=== PATIENT | male | born 1975 | race Caucasian/White ===

== ENCOUNTER 2019-09-11 01:03 | Emergency (ER) | payer SELFPAY ==
[~2019-09-11] VITALS: Ht 170.2 cm; Wt 85.7 kg
--- NOTE | 2019-09-11 01:15 | NUR ---
PT TAKEN TO BED 11
[2019-09-11 01:16] VITALS: BP 152/110
--- NOTE | 2019-09-11 01:21 | NUR ---
Dr. Khan examining patient.
--- NOTE | 2019-09-11 01:25 | NUR ---
44 Y/O MALE PRESENTS TO ED, C/O ALTERATION OF SKIN INTEGRITY ON BILAT LEGS THATS PROGRESSING TOWARDS TORSO. HAS SAME SYMPTOMS ON BILAT LEGS X1 MONTH BUT WORSENED RECENTLY PT TAKES MEDICATIONS TO HELP ALLEVATE PAIN. C/O BURNING LIKE SENSATION. PT STABLE. PT SEEN BY AUDREY. WILL CONTINUE TO MONITOR.
[2019-09-11] MEDS ORDERED: VANCOMYCIN 1,000 MG in DEXTROSE 5% 250 ML IV ONE (01:30)
[2019-09-11] MEDS ORDERED: VANCOMYCIN 1,000 MG VIAL ONE (01:50)
[2019-09-11 04:45] VITALS: BP 155/88
--- NOTE | 2019-09-11 04:45 | NUR ---
PT DISCHARGED BY DR MORALES, PROVIDED PAPERWORK. RX MUPIROCIN, BACTRIM. EDUCATED PT REGARDING MEDICATIONS AND S/E. EDUCATED PT REGARDING D/C DIAGNOSIS AND INSTRUCTIONS. PT VERBALIZED UNDERSTANDING OF TEACHING. TOLD PT TO FOLLOW UP WITH PCP AND WHEN TO RETURN TO ED. PT VSS. ALL QUESTIONS ANSWERED.
== END 2019-09-11 04:45 | disposition home or self-care (01) ==
LOC: MED 01:03
DX: L03.116 Cellulitis of left lower limb (principal); L03.115 Cellulitis of right lower limb; B95.62 Methicillin resistant Staphylococcus aureus infection as the cause of diseases classified elsewhere
CPT/HCPCS: 36415; 87040; 96365; 96366; 99283; J3370

== ENCOUNTER 2019-09-16 22:52 | Inpatient (IN) | payer SELFPAY ==
[~2019-09-16] VITALS: Ht 167.6 cm; Wt 81.2 kg
[2019-09-16 23:20] VITALS: BP 129/90
--- NOTE | 2019-09-16 23:20 | NUR ---
TO BED # 12 AMBULATORY
--- NOTE | 2019-09-16 23:45 | NUR ---
44 YO M BIB SELF AND PARTNER PRESENTS TO ED C/O BODY RASH X 1 WEEK S/P STARTING BACTRIM ABX. PT WAS SEEN HERE IN ER X 1 WEEK AGO ORIGINALLY FOR CELLULITIS RASH TO BILATERAL LEGS. PT SENT HOME WITH BACTRIM. PT STATES 2 DAYS AFTER STARTING BACTRIM, PT EXPERIENCED MILD THROAT SWELLING X 2-3 HOURS AFTER TAKING BACTRIM. PT ALSO DEVELOPED GENERALIZED BODY RASH TO BUE, TRUNK, BACK. CELLULITIS TO LEGS REMAINS UNRESOLVED. PT DENIES DIFFICULTY BREATHING, FEVER/CHILLS, NVD. -- PT AWAKE, A/O X 4. CALM, COOPERATIVE. ANSWERS QUESTIONS WITHOUT DIFFICULTY IN CLEAR, FULL SENTECNES. -- SKIN PINK, WARM, DRY. BREATHING EVEN, UNLABORED. -- BLE APPEAR RED, INFLAMMED, WITH SKIN PEELING AND WEEPING NOTED. PMH-- DENIES RX-- DENIES
[2019-09-17] MEDS ORDERED: methylPREDNISolone SS 125 MG in WATER STERILE 2 ML IV ONE (00:30)
[2019-09-17] MEDS ORDERED: VANCOMYCIN 1,000 MG in DEXTROSE 5% 250 ML IV ONE (00:30)
[2019-09-17] MEDS ORDERED: VANCOMYCIN 1,000 MG VIAL ONE (00:52)
[2019-09-17 01:07] LABS: HEMATOCRIT 42.5 % (36-52); HEMOGLOBIN 14.5 g/dL (12.0-18.0); MEAN CORPUSCULAR HEMOGLOBIN 31 pg (27-31); MEAN CORPUSCULAR HGB CONC 34 g/dL (33-37); MEAN CORPUSCULAR VOLUME 89.5 fL (80-94); PLATELET COUNT (AUTO) 361 K/uL (140-450); RED BLOOD CELL COUNT(AUTO) 4.75 MIL/uL (4.20-6.10); RED CELL DISTRIBUTION WIDTH 13.7 % (11.6-13.7); WHITE BLOOD COUNT (AUTO) 14.1 K/uL (4.8-10.8)
[2019-09-17 01:19] LABS: EOSINOPHILS % (MANUAL) 39 % (0-4); LYMPHOCYTES % (MANUAL) 17 % (20-46); MONOCYTES % (MANUAL) 4 % (5-12)
[2019-09-17 01:22] LABS: ANION GAP 15.8 (8-16); CARBON DIOXIDE 26.1 mmol/L (21-32); CREATININE 1.5 mg/dL (0.7-1.3); POTASSIUM 3.9 mmol/L (3.5-5.1)
[2019-09-17 01:31] LABS: TOTAL BILIRUBIN 0.3 mg/dL (0.0-1.0)
[2019-09-17 01:32] LABS: ALBUMIN 3.9 g/dL (3.4-5.0)
[2019-09-17] MEDS ORDERED: ACETAMINOPHEN 325 MG TAB PO PRN (01:50)
[2019-09-17] MEDS ORDERED: HYDROcodone/APAP 7.5/325 MG 1 TAB PO PRN (01:50)
[2019-09-17] MEDS ORDERED: ONDANSETRON 4 MG/2 ML VIAL IM/IVP PRN (01:50)
[2019-09-17] MEDS ORDERED: MORPHINE SULFATE 2 MG/ML SYR IVP PRN (01:50)
[2019-09-17] MEDS ORDERED: VANCOMYCIN PER PHARMACY MC PRN (03:30)
[2019-09-17 04:00] VITALS: BP 121/77
[2019-09-17] MEDS: NACL 0.9% 1,000 ML IV SCH ×2 (04:00→20:31)
--- NOTE | 2019-09-17 04:00 | NUR ---
PT IS NEW ADMIT, COME WITH HOSPITAL BED WITH 2 NURSES FROM ER AT 0330. PT IS ALERT ORIENTED X4, NO S/S OF RESP DISTRESS, NO SOB. RESP. EVEN UN LABOR. DENIES ANY PAIN AT THIS TIME. WEI GIRL FRIEND AT BED SIDE. PT SAID HE WAS HAVING CELLULITIS TO BLE AND GO TO SEE PHYSICIAN AND GET BACTRIM FOR IT. BUT STARTING FEEDING ITCHING AND RASHES ALL OVER THE BODY. PT BACK TO ER FOR HELP. SKIN WARM TO TOUCH. NOTED RASHES ALL OVER PT BODY,PT SAID SOMETIMES SO ITCHING SO HE STARTING SCRATCHING BOTH LEGS AND NOTED MULTIPLE SMALL OPEN SKIN NO BLEEDING NO DRAINAGE NOTED. MD AWARE. PICS TAKEN. IV LINE LEFT AC NO 20. START WITH NS AT 60 CC/HR ORDER. PT ABLE TO REPOSITION HIM SELF IN BED, CONTINENT BOWEL AND BLADDER. KEPT CLEAN AND DRY. CALL LIGHT IN REACH.
[2019-09-17 04:05] LABS: FREE T4 (FREE THYROXINE) 1.02 ng/dL (0.76-1.46); MAGNESIUM 2.2 mg/dL (1.8-2.4)
[2019-09-17 04:14] LABS: PROTHROMBIN TIME 9.6 secs (10.8-13.4)
[2019-09-17 04:25] LABS: THYROID STIMULATING HORMONE 4.92 uIU/mL (0.34-3.74)
[2019-09-17 04:42] LABS: APPEARANCE,URINE CLEAR (CLEAR); BILIRUBIN,URINE NEGATIVE (NEGATIVE); BLOOD, URINE NEGATIVE (NEGATIVE); COLOR,URINE YELLOW (YELLOW); LEUKOCYTE ESTERASE ,URINE NEGATIVE (NEGATIVE); NITRITE, URINE NEGATIVE (NEGATIVE); UGLUCOSE NEGATIVE (NEGATIVE)
[2019-09-17 04:55] LABS: BARBITURATE, URINE NEGATIVE ng/ml (NEG <=200); BENZODIAZEPINE, URINE NEGATIVE ng/mL (NEG <=200); CANNABINOID, URINE NEGATIVE ng/mL (NEG <=50); COCAINE, URINE NEGATIVE ng/mL (NEG <=300); OPIATE, URINE NEGATIVE ng/mL (NEG <=2000); PHENCYCLIDINE SCREEN,URINE NEGATIVE ng/mL (NEG <=25)
[2019-09-17 06:00] VITALS: BP 111/73
--- NOTE | 2019-09-17 06:52 | NUR ---
DR.MENDEZ TAYLOR AWARE THE WOUND ON BLE, AND COME TO ASSESS PT.
[2019-09-17] MEDS: methylPREDNISolone SS 125 MG/2 ML VIAL IVP SCH ×3 (07:29→22:23)
[2019-09-17 08:00] VITALS: BP 112/70
--- NOTE | 2019-09-17 08:00 | NUR ---
ON DUTY RECEIVED THIS PT A/OX4, FOLLOWS COMMAND, SPEAKS FULL SENTENCES, NO ACUTE DISTRESS. CHATTING WITH FAMILY BEDSIDE. NO S/S OF SOB. BREATHING EVEN. ABD ROUND AND SOFT. CELLULITIS ON BLE. DENIES PAIN. KEEP CLOSE WATCHING.
[2019-09-17] MEDS: LORATADINE 10 MG TAB PO SCH (09:49)
[2019-09-17] MEDS: diphenhydrAMINE 50 MG/ML VIAL IVP SCH ×2 (09:49→20:32)
[2019-09-17] MEDS: FAMOTIDINE 20 MG TAB PO SCH (09:50)
[2019-09-17] MEDS: HYDRAGUARD CREAM TP SCH ×2 (09:55→20:32)
[2019-09-17] MEDS: LACTOBACILLUS RHAMNOSUS GG 1 EACH CAP PO SCH (09:55)
[2019-09-17 10:00] LABS: BASOPHILS % (AUTO) 0.1 % (0.0-2.0); EOSINOPHILS # (AUTO) 1.2 K/uL (0-0.4); EOSINOPHILS % (AUTO) 11.6 % (0.0-4.0); HEMATOCRIT 39.9 % (36-52); HEMOGLOBIN 13.3 g/dL (12.0-18.0); LYMPHOCYTES # (AUTO) 1.5 K/uL (2.0-11.5); LYMPHOCYTES % (AUTO) 14.4 % (20.5-51.1); MEAN CORPUSCULAR HEMOGLOBIN 30 pg (27-31); MEAN CORPUSCULAR HGB CONC 33 g/dL (33-37); MEAN CORPUSCULAR VOLUME 89.9 fL (80-94); MONOCYTES # (AUTO) 0.1 K/uL (0.8-1.0); MONOCYTES % (AUTO) 1.3 % (1.7-9.3); NEUTROPHILS # (AUTO) 7.7 K/uL (1.8-7.7); NEUTROPHILS % (AUTO) 72.6 % (42.2-75.2); PLATELET COUNT (AUTO) 327 K/uL (140-450); RED BLOOD CELL COUNT(AUTO) 4.44 MIL/uL (4.20-6.10); RED CELL DISTRIBUTION WIDTH 13.4 % (11.6-13.7); WHITE BLOOD COUNT (AUTO) 10.6 K/uL (4.8-10.8)
[2019-09-17 10:33] LABS: ANION GAP 13.3 (8-16); CARBON DIOXIDE 26.5 mmol/L (21-32); CREATININE 1.2 mg/dL (0.7-1.3); POTASSIUM 4.8 mmol/L (3.5-5.1)
[2019-09-17 12:00] VITALS: BP 92/44
[2019-09-17] MEDS: VANCOMYCIN 750 MG in DEXTROSE 5% 250 ML IV SCH (14:27)
[2019-09-17 16:00] VITALS: BP 116/72
--- NOTE | 2019-09-17 19:30 | NUR ---
RECEIVED BEDSIDE REPORT FROM PARK LANDSCAPE ARCHITECT. PT IS AAOX4 CITIZEN OF [place] SPEAKING. RESPIRATIONS ARE EQUAL AND UNLABORED ON RA. PT IS AMBULATORY. IV ON LAC 20G IVF PER ORDERS. DX AL LOWER EXTREMITIES CELLULITES OPEN TO AIR NO MARKING ON LEGS. ALSO PATIENT HAS RASH OVER HIS BODY HAS AMIRA BENADRYL AND SOLU-MEDROL. LUNG SOUNDS ARE CLEAR. REPORT NO DIFFICULTLY BREATHING OR SWALLOWING SALIVA. POC DISCUSSED WITH PT. CALL LIGHT IS WITHIN REACH. WILL CONTINUE TO MONITOR.
[2019-09-17 20:00] VITALS: BP 120/68
--- NOTE | 2019-09-17 20:30 | NUR ---
VITAL SIGNS ARE WITHIN NORMAL LIMITS. AMIRA MEDICATION GIVEN. HYDRO GUARD APPLIED PER ORDERS. PT DENIES PAIN. CALL LIGHT IS WITHIN REACH. WILL CONTINUE TO MONITOR.
--- NOTE | 2019-09-17 22:00 | NUR ---
PATIENT IS RESTING COMFORTABLY IN BED WATCHING TV. NO S/S OF DISTRESS. WILL CONTINUE TO MONITOR.
[2019-09-18] VITALS: BP 113/63
--- NOTE | 2019-09-18 | NUR ---
VITAL SIGNS ARE WITHIN NORMAL LIMITS. NO S/S OF DISTRESS. CALL LIGHT IS WITHIN REACH.
--- NOTE | 2019-09-18 01:11 | NUR ---
CLEANS LEGS WITH NS AND PAT DRY NO DRAINAGE NOTED. APPLIED HYDRAGUARD PER ORDERS. BARBER APPRENTICE.
--- NOTE | 2019-09-18 02:30 | NUR ---
PATIENT IS SLEEPING COMFORTABLY IN BED. CHEST RISE AND FALL. CALL LIGHT IS WITHIN REACH.
[2019-09-18] MEDS: VANCOMYCIN 750 MG in DEXTROSE 5% 250 ML IV SCH (02:38)
[2019-09-18 04:00] VITALS: BP 129/79
--- NOTE | 2019-09-18 04:00 | NUR ---
VITAL SIGNS ARE WITHIN NORMAL LIMITS. NO S/S OF DISTRESS. CALL LIGHT IS WITHIN REACH. WILL CONTINUE TO MONITOR
--- NOTE | 2019-09-18 06:00 | NUR ---
PATIENT IS RESTING COMFORTABLY IN BED. NO S/S OF DISTRESS. CALL LIGHT IS WITHIN REACH.
[2019-09-18] MEDS: methylPREDNISolone SS 125 MG/2 ML VIAL IVP SCH ×2 (06:11→15:31)
--- NOTE | 2019-09-18 07:13 | NUR ---
GAVE BEDSIDE REPORT TO DAY RN. PT ENDORSED IN STABLE CONDITION.
--- NOTE | 2019-09-18 07:13 | NUR ---
RECEIVED REPORT FROM ENGRAVER NURSE. AAOX4, NO C/O PAIN AT THIS TIME. RESPIRATIONS EVEN AND UNLABORED ON RA. IV ON LT AC 20 GA RUNNING IVF PER ORDER. ABD SOFT, ACTIVE BS. NOTED RASH THROUGHOUT BODY, AND CELLULITIS TO BILATERAL LEGS/DRY AND SUPERVISORY LIFEGUARD, SKIN IS WARM TO TOUCH. PT ON FALL RISK PRECAUTIONS, SAFETY MEASURES IN PLACE, CALL LIGHT WITHIN REACH. REVIEWED POC WITH PT, PT VERBALIZED UNDERSTANDING.
[2019-09-18 07:26] LABS: HEMATOCRIT 37.7 % (36-52); HEMOGLOBIN 12.3 g/dL (12.0-18.0); MEAN CORPUSCULAR HEMOGLOBIN 30 pg (27-31); MEAN CORPUSCULAR HGB CONC 33 g/dL (33-37); MEAN CORPUSCULAR VOLUME 90.6 fL (80-94); PLATELET COUNT (AUTO) 307 K/uL (140-450); RED BLOOD CELL COUNT(AUTO) 4.16 MIL/uL (4.20-6.10); RED CELL DISTRIBUTION WIDTH 13.3 % (11.6-13.7); WHITE BLOOD COUNT (AUTO) 21.1 K/uL (4.8-10.8)
[2019-09-18 07:37] LABS: ANION GAP 15.3 (8-16); POTASSIUM 4.3 mmol/L (3.5-5.1)
[2019-09-18] MEDS ORDERED: CLINDAMYCIN 150 MG CAP PO SCH (07:40)
[2019-09-18 07:52] LABS: MAGNESIUM 2.2 mg/dL (1.8-2.4); PHOSPHORUS 3.6 mg/dL (2.5-4.9)
[2019-09-18 08:00] VITALS: BP 112/64
[2019-09-18 08:21] LABS: EOSINOPHILS % (MANUAL) 2 % (0-4); LYMPHOCYTES % (MANUAL) 4 % (20-46); MONOCYTES % (MANUAL) 2 % (5-12)
--- NOTE | 2019-09-18 08:21 | NUR ---
Late entry. Confirmed with RN that Vancomycin IVPB completed at 0250
[2019-09-18] MEDS: LACTOBACILLUS RHAMNOSUS GG 1 EACH CAP PO SCH (08:22)
[2019-09-18] MEDS: diphenhydrAMINE 50 MG/ML VIAL IVP SCH (08:22)
[2019-09-18] MEDS: FAMOTIDINE 20 MG TAB PO SCH (08:22)
[2019-09-18] MEDS: LORATADINE 10 MG TAB PO SCH (08:22)
[2019-09-18] MEDS: HYDRAGUARD CREAM TP SCH (08:26)
--- NOTE | 2019-09-18 08:26 | NUR ---
ADMINISTERED MEDICATIONS PER ORDER, PT VERBALIZES UNDERSTANDING INDICATIONS AND POTENTIAL SIDE EFFECTS.
--- NOTE | 2019-09-18 08:28 | NUR ---
PATIENT HAS BEEN SCREENED AND CATEGORIZED LOW NUTRITION RISK. PATIENT WILL BE SEEN WITHIN 7 DAYS OF ADMISSION. 09/23/[address]
--- NOTE | 2019-09-18 08:38 | NUR ---
GIVEN SKIN CARE TO BILATERAL LEGS AND APPLIED HYDRAGUARD TO PREVENT SKIN BREAKDOWN.
[2019-09-18] MEDS: NACL 0.9% 1,000 ML IV SCH (11:10)
[2019-09-18] MEDS: CLINDAMYCIN 150 MG CAP PO SCH ×2 (11:39→17:36)
--- NOTE | 2019-09-18 11:39 | NUR ---
ADMINISTERED CLEOCIN PER ORDER, PT VERBALIZED UNDERSTANDING OF INDICATION AND POTENTIAL SIDE EFFECTS. PT HAS NO C/O PAIN AT THIS TIME, VS WITHIN NORMAL RANGE.
[2019-09-18 12:00] VITALS: BP 130/76
--- NOTE | 2019-09-18 12:50 | NUR ---
PER PHARMACY, VANCO TROUGH WILL BE DRAWN AT 1300. AWAITING RESULTS.
--- NOTE | 2019-09-18 13:18 | NUR ---
Pipeline Inspector Assessment/Discharge Plan Name: Baylee Shoemaker Relationship: sister Pre-Admission Living Arrangements: Lives Alone Prior ADL Independent Current Home Health Name/Tel: N/A Current DME/02 Name/Tel: N/A Current Hospice Name/Tel: N/A Current Dialysis Name/Tel: N/A Healthcare Decision Maker: Patient Advance Directive No Information Taught: Advance Directive Community Resources Person Taught: Patient Teaching Tools: Community Resources Computer Generated Print Verbal Factors Affecting Learning: None Participation Level: Active Evaluation: Gestures Understanding Verbalizes Understanding Educator: NOELLE Honeycutt Discipline: Case Mgt/Social Svcs Tentative Discharge Plan Summary: Patient is a 44 year old male with no significant PMH, admitted for lower extremity cellulitis, allergic reaction. I met with patient at bedside. Patient alert and oriented x4. Patient lives alone at home and plans to return home upon discharge. Patient goes to a clinic located in [place] (near [place]) for medical care. He does not recall name of clinic nor name of pcp. He does not have any difficulty filling his prescriptions at pharmacy. He stated his last appt at clinic located in [place], [place] was last Wednesday. Patient is independent with ADLs and does not use any DME at home. I provided patient with a list of low clinics. Patient denied hx of mental health. Patient also denied alcohol/substance abuse. He stated he does not have any questions nor concerns at this time. Pipeline Inspector and/or Cartographic Designer will follow up as needed. Signature: NOELLE Honeycutt Date: Sep 18, 2019
[2019-09-18] MEDS ORDERED: FAMO20TA13 PO (13:51)
[2019-09-18] MEDS ORDERED: CLIN150C15 PO (13:51)
[2019-09-18] MEDS ORDERED: BEN50 PO (13:51)
[2019-09-18] MEDS ORDERED: LACT10CA PO (13:51)
--- NOTE | 2019-09-18 15:00 | NUR ---
PT IS AWARE THAT HE WILL BE DISCHARGED TODAY. PT HAS NO SIGNS OF DISTRESS AT THIS TIME.
[2019-09-18 16:00] VITALS: BP 127/60
[2019-09-18] MEDS ORDERED: VANCOMYCIN 1,250 MG in DEXTROSE 5% 250 ML IV SCH (16:00)
--- NOTE | 2019-09-18 17:36 | NUR ---
ADMINISTERED CLEOCIN PER ORDER, PT IS AWARE OF INDICATIONS AND POTENTIAL SIDE EFFECTS.
--- NOTE | 2019-09-18 18:15 | NUR ---
PT HAS BEEN DISCHARGED. ALL PAPERWORK SIGNED, ALL QUESTIONS ANSWERED. ALL BELONGINGS AND WORK NOTE IN PT POSSESSION. IV DISCONTINUED WITH CANNULA INTACT. WRISTBANDS AND TELE MONITOR REMOVED. PT REFUSED WHEELCHAIR, AMBULATED OUT OF UNIT WITH STEADY GAIT, GIRLFRIEND AT SIDE. PT IN STABLE CONDITION.
[2019-09-18] MEDS ORDERED: methylPREDNISolone SS 125 MG/2 ML VIAL IVP SCH (21:00)
== END 2019-09-18 18:15 | disposition home or self-care (01) | DRG 871 ==
LOC: MED 22:52 → MIC 09-17 01:53 → MTU 09-17 19:10
PROVIDERS: ADMIT General Practice; ATTEND General Practice
DX: A41.9 Sepsis, unspecified organism (principal); N17.0 Acute kidney failure with tubular necrosis; L03.115 Cellulitis of right lower limb; L03.116 Cellulitis of left lower limb; E02 Subclinical iodine-deficiency hypothyroidism; T38.0X5A Adverse effect of glucocorticoids and synthetic analogues, initial encounter; L27.0 Generalized skin eruption due to drugs and medicaments taken internally; T36.8X5A Adverse effect of other systemic antibiotics, initial encounter; Z88.1 Allergy status to other antibiotic agents; Y92.89 Other specified places as the place of occurrence of the external cause
CPT/HCPCS: 36415; 71045; 80048; 80053; 80202; 80305; 81003; 82550; 83036; 83605; 83690; 83735; 83880; 84100; 84439; 84443; 85025; 85610; 85730; 87040; 87081; 87086; 93970; 96365; 96375; 99285; J1200; J1644; J2930; J3370; J7030; J7060; Q0092